=== PATIENT | female | born 1960 | race Hispanic/Latino ===

== ENCOUNTER 2025-05-24 09:30 | Outpatient (RCR) | payer OTHER, MEDICARE | END 2025-05-25 | LOC: WCC 09:30 | PROVIDERS: ATTEND Internal Medicine Infectious Disease | DX: T81.89XA Other complications of procedures, not elsewhere classified, initial encounter (principal) ==

== ENCOUNTER → 2025-06-02 | Outpatient (REF) | payer OTHER, MEDICARE | LOC: CT 08:19 | PROVIDERS: ATTEND Internal Medicine Infectious Disease | DX: T81.89XA Other complications of procedures, not elsewhere classified, initial encounter (principal) | CPT/HCPCS: 72131 ==

== ENCOUNTER 2025-06-23 10:00 | Outpatient (RCR) | payer OTHER, MEDICARE | END 2025-06-25 | LOC: WCC 10:00 | PROVIDERS: ATTEND Internal Medicine Infectious Disease | DX: T81.89XA Other complications of procedures, not elsewhere classified, initial encounter (principal) | CPT/HCPCS: 36415; 82948; 87071; 87075; 87186; 87205 ==

== ENCOUNTER 2025-07-24 11:30 | Outpatient (RCR) | payer OTHER, MEDICARE | END 2025-07-25 | LOC: WCC 11:30 | PROVIDERS: ATTEND Internal Medicine Infectious Disease | DX: T81.89XA Other complications of procedures, not elsewhere classified, initial encounter (principal); A49.01 Methicillin susceptible Staphylococcus aureus infection, unspecified site ==